=== PATIENT | female | born 1985 | race American Indian/Alaskan Native ===

== ENCOUNTER 2021-08-29 02:44 | Emergency (ER) | payer SELFPAY ==
[2021-08-29] MEDS ORDERED: IBUPROFEN 600 MG TAB PO ONE (09:30)
[2021-08-29] MEDS ORDERED: TETANUS,DIPH,PERTUSS(ACELL) VACCINE 0.5 ML SYRINGE IM ONE (09:30)
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
--- NOTE | 2021-08-29 10:15 | XRay Report ---
Left hand 3 views INDICATION: Injury FINDINGS: Alignment appears normal. No radiopaque foreign body seen in the soft tissues. No acute fra cture is identified. MCP joints and IP joints appear intact IMPRESSION: No acute findings are definitely seen. If there is concern for tendon injury MRI could be performed. Signer Name: Cristopher Farias MD Signed: 08/29/2021 10:11 AM Workstation Name: [id number]
[2021-08-29 10:33] VITALS: BP 120/80
== END 2021-08-29 10:33 | disposition home or self-care (01) ==
LOC: ED 02:44
DX: S61.211A Laceration without foreign body of left index finger without damage to nail, initial encounter (principal); J45.909 Unspecified asthma, uncomplicated; W45.8XXA Other foreign body or object entering through skin, initial encounter; Y93.89 Activity, other specified; Y92.89 Other specified places as the place of occurrence of the external cause; Y99.8 Other external cause status
CPT/HCPCS: 90471; 90715; 99283